=== PATIENT | female | born 1985 | race Caucasian/White ===

== ENCOUNTER 2016-09-03 21:15 | Emergency (ER) | payer BC ==
[~2016-09-03] VITALS: Ht 160 cm; Wt 84.0 kg
[2016-09-03 21:16] VITALS: BP 159/103; PULSE 83; RESP 16; TEMP 98.1; O2SAT 98
[2016-09-03] MEDS ORDERED: LIDOCAINE 1%/EPINEPHrine 1:100,000 SOLN 20 ML VIAL INFIL ONE (21:45)
[2016-09-03] MEDS ORDERED: CEPH-460 PO (21:45)
[2016-09-03] MEDS ORDERED: BACT800T5 PO (21:45)
--- NOTE | 2016-09-03 21:49 | PD ---
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 She hasn't had one in about 2 years but per father mother has had problems with this as well. She denies any allergies to medication. She denies any chest pain or shortness of breath. No fevers chills or sweats. Per patient pain is severe 10 out of 10. She has had them lanced in the past. She does have multiple scars from previous ones. She denies any history of IV drug abuse. She denies any other medical problems. Per patient the pain is 10 out of 10. No discharge from the vagina. No STD. PFSH Past Medical History Medical History: Denies Significant Hx Social History Alcohol Use: No Tobacco Use: No Substance Use: No Allergies-Medications (Allergen,Severity, Reaction): Coded Allergies: No Known Allergies (Unverified , 09/03/16) Review of Systems Except as stated in HPI: all other systems reviewed are Neg Physical Exam Narrative GENERAL: SKIN: Warm and dry. HEAD: Atraumatic. Normocephalic. EYES: Pupils equal and round. No scleral icterus. No injection or drainage. ENT: No nasal bleeding or discharge. Mucous membranes pink and moist. NECK: Trachea midline. No JVD. CARDIOVASCULAR: Regular rate and rhythm. RESPIRATORY: No accessory muscle use. Clear to auscultation. Breath sounds equal bilaterally. GASTROINTESTINAL: Abdomen soft, non-tender, nondistended. Hepatic and splenic margins not palpable. Genital exam: Done with female nurse present. Patient has a 2 x 1 cm boil on the area just below the inferior right labia. Does not appear to go into the vagina. No sign of discharge from the vagina. Tender to touch. Warm to touch. MUSCULOSKELETAL: Extremities without clubbing, cyanosis, or edema. No obvious deformities. NEUROLOGICAL: Awake and alert. No obvious cranial nerve deficits. Motor grossly within normal limits. Five out of 5 muscle strength in the arms and legs. Normal speech. PSYCHIATRIC: Appropriate mood and affect; insight and judgment normal. Data Data Last Documented VS Vital Signs Date Time Temp Pulse Resp B/P Pulse Ox O2 Delivery O2 Flow Rate FiO2 09/03/16 21:16 98.1 83 16 159/103 98 Room Air Orders Wound Culture And Gram Stain (09/03/16 21:38) Wound Care (09/03/16 21:38) Lidocai-Epi 1%-1:100,000 Inj (Xylocaine- (09/03/16 21:45) MDM Medical Decision Making Medical Screen Exam Complete: Yes Emergency Medical Condition: Yes Medical Record Reviewed: Yes Differential Diagnosis Abscesses versus boil versus Bartholin gland cyst Narrative Course 30-year-old female that presents to the ED for evaluation of abscess. Patient was properly examined and was found to have signs and symptoms consistent with abscess. Case discussed in my attending Dr. Woods who agrees with plan. After explained procedure to the patient and she agreed to it abscess was incised and drained as stated in procedure note. Packing was placed. Patient was started on Bactrim and Keflex. Lortab for pain. Told to follow closely with PCP. See ED if worsening symptoms. Procedures Procedure Narrative After the risks and benefits were discussed the following procedure was performed: INCISION AND DRAINAGE OF ABSCESS: The area was prepped and was sterilely draped. A subcutaneous wheal of 1 % Xylocaine with a total number 5 mL was used to anesthetize the area. The area was properly anesthetized. A number 11 scalpel was used to make a 1 -cm incision across the area of the abscess. Cultures were obtained. The abscess was drained an irrigated with normal saline. Quarter inch iodoform packing was placed in the wound. Sterile dressing applied. Patient advised to have packing removed in two days. Diagnosis Primary Impression: Abscess Patient Instructions: General Instructions Additional Instructions: Warm compresses. Motrin or Tylenol for pain Take medications as prescribed. Follow-up with PCP. See ED for any worsening symptoms. Do not drink or drive while taking pain medication. Med/Other Pt SpecificInfo: Prescription(s) given Scripts Cephalexin (Keflex)500 Mg [id number] Mg PO Q6H 10 Days Prov:Azeb Woods MD 09/03/16 Sulfamethoxazole-Trimethoprim (Bactrim DS)800-160 Mg Tab1 Tab PO BID 10 Days Prov:Azeb Woods MD 09/03/16 Disposition: 01 DISCHARGE HOME Condition: Stable Casey Andrew Sep 03, 2016 21:49
[2016-09-03] MEDS ORDERED: HYDR-3533 PO (21:50)
--- NOTE | 2016-09-03 22:41 | PD ---
Data Data Last Documented VS Vital Signs Date Time Temp Pulse Resp B/P Pulse Ox O2 Delivery O2 Flow Rate FiO2 09/03/16 21:16 98.1 83 16 159/103 98 Room Air Orders Wound Culture And Gram Stain (09/03/16 21:38) Wound Care (09/03/16 21:38) Lidocai-Epi 1%-1:100,000 Inj (Xylocaine- (09/03/16 21:45) MDM Supervised Visit with EFRAIN: Yes Narrative Course The history, exam, and medical decision-making in the associated midlevel provider note were completed with my assistance. I reviewed and agree with the findings presented. I attest that I had a [id number] encounter with the patient on the same day, and personally performed and documented my assessment and findings in the medical record. *My assessment and Findings: This is a 30-year-old female who presents to the emergency department with an abscess on her lower vagina. The abscess seems to be located on the anterior aspect of the perineum. It's fairly small. I think it's lower than a Bartholin's cyst would be. She has no risk factors for STD. It was incised and drained by the physician real estate assistant without complication. I think the patient can be discharged home and follow-up with her globe mounter. Diagnosis Primary Impression: Abscess Patient Instructions: General Instructions, Abscess (ED) Departure Forms: Tests/Procedures Additional Instruction: Warm compresses. Motrin or Tylenol for pain Take medications as prescribed. Follow-up with PCP. See ED for any worsening symptoms. Do not drink or drive while taking pain medication. Scripts Hydrocodone-Acetaminophen (Lortab)5-325 Mg Tab1 Tab PO Q6H PRN (PAIN) #20 TAB Prov:Azeb Woods MD 09/03/16 Cephalexin (Keflex)500 Mg Zur522 Mg PO Q6H 10 Days Prov:Azeb Woods MD 09/03/16 Sulfamethoxazole-Trimethoprim (Bactrim DS)800-160 Mg Tab1 Tab PO BID 10 Days Prov:Azeb Woods MD 09/03/16 Disposition: 01 DISCHARGE HOME Condition: Stable Azeb Woods MD Sep 03, 2016 22:41
== END 2016-09-03 22:57 | disposition home or self-care (01) ==
LOC: NEPC 21:15
DX: L02.215 Cutaneous abscess of perineum (principal)
CPT/HCPCS: 10061; 86403; 87070; 87205